=== PATIENT | female | born 1960 | race Hispanic/Latino ===

== ENCOUNTER 2017-06-04 17:42 | Emergency (ER) | payer OTHER ==
[~2017-06-04] VITALS: Ht 142.2 cm; Wt 58.1 kg
[2017-06-04] MEDS ORDERED: HYDROCODONE/APAP 10MG-325MG TAB PO ONE (19:00)
[2017-06-04 20:00] LABS: BASOPHILS % 0.6 % (0.0-1.0); EOSINOPHILS # (AUTO) 0.3 (0.0-0.4); EOSINOPHILS % 4.9 % (0.0-6.0); HEMATOCRIT 38.8 % (34.2-44.1); HEMOGLOBIN 13.7 g/dL (12.0-16.0); LYMPHOCYTES # (AUTO) 2.3 (1.0-3.2); LYMPHOCYTES % 36.5 % (18.0-39.1); MEAN CORPUSCULAR HEMOGLOBIN 31.3 pg (28-32); MEAN CORPUSCULAR HGB CONC 35.3 g/dL (31-35); MEAN CORPUSCULAR VOLUME 88.6 fL (81-99); MONOCYTES # (AUTO) 0.5 (0.2-0.8); MONOCYTES % 7.6 % (4.4-11.3); NEUTROPHILS # (AUTO) 3.1 (2.1-6.9); NEUTROPHILS % 50.1 % (38.7-80.0); PLATELET COUNT 216 x10e3/uL (140-360); RED BLOOD COUNT 4.38 x10e6/uL (3.6-5.1); RED CELL DISTRIBUTION WIDTH 12.5 % (11.7-14.4)
[2017-06-04 20:18] LABS: ALANINE AMINOTRANSFERASE 24 IU/L (0-55); ALBUMIN 4.3 g/dL (3.5-5.0); ALBUMIN/GLOBULIN RATIO 1.2 (0.8-2.0); ALKALINE PHOSPHATASE 84 IU/L (40-150); ANION GAP 13.6 mmol/L (8-16); BLOOD UREA NITROGEN 21 mg/dL (7-26); BUN/CREATININE RATIO 26 (6-25); CALCIUM 9.4 mg/dL (8.4-10.2); CARBON DIOXIDE 29 mmol/L (22-29); CHLORIDE 103 mmol/L (98-107); CREATININE, SERUM 0.82 mg/dL (0.57-1.11); EST GLOMERULAR FILTRATION RATE > 60 ML/MIN (60-); GLUCOSE 128 mg/dL (74-118); POTASSIUM 3.6 mmol/L (3.5-5.1); SODIUM 142 mmol/L (136-145)
--- NOTE | 2017-06-04 21:34 | Diagnostic Imaging Report ---
History: Back pain and saddle paresthesia for one month. Comparison studies: None Technique: Sagittal , coronal and axial T2 , sagittal T1 and IR, axial PD.. Intravenous contrast: None Findings: Number of lumbar vertebral bodies: 5. Alignment: Normal lordosis. No scoliosis. Soft tissues: No T2 hyperintense inflammatory changes. Paraspinal muscles: No signal abnormalities. Well-preserved. No atrophic changes Lower thoracic cord: Normal in signal and morphology. The tip of the conus is at L1 . Cauda equina: No masses. No arachnoiditis. Vertebrae: No compression fractures, infection or neoplasm. Superior and inferior endplate Schmorl's node at L2. Degenerative changes: L1-L2: Mild degenerative disc disease with decreased intervertebral disc space and decreased T2 signal. Disc bulge without canal stenosis. No foraminal stenosis. L2-L3: Mild degenerative disc disease with decreased T2 signal. Disc bulge in combination with epidural lipomatosis results in mild canal stenosis. No foraminal stenosis. L3-L4: Mild degenerative disc disease with decreased T2 signal. Disc bulge in combination with thickened ligamentum flavum, bilateral facet arthrosis and mild epidural lipomatosis results in mild canal stenosis. Mild bilateral foraminal stenosis. L4-L5: Mild degenerative disc disease with decreased T2 signal. Disc bulge in combination with thickened ligamentum flavum and bilateral severe facet arthrosis results in severe canal stenosis with crowding of cauda equina nerve roots. Bilateral severe facet arthrosis with moderate amount of fluid in the facet joints. Bilateral mild foraminal stenosis. L5-S1: Moderate degenerative disc disease with decreased intervertebral disc space and decreased T2 signal. 3 mm grade 1 anterolisthesis. Disc bulge with superimposed 3 mm central disc protrusion in combination with thickened ligamentum flavum and facet arthrosis results in moderate canal stenosis. Severe right and mild left foraminal stenosis. Possible impingement of right L5 nerve root by disc material. Bilateral severe facet arthrosis with trace amount of fluid in the facet joints. Visualized portion of bilateral sacroiliac joints: No significant abnormality. IMPRESSION: 1. Multilevel lumbar spondylosis with predominant findings at level L4-L5. 2. Multilevel canal stenosis, particularly severe canal stenosis at L4-L5, moderate canal stenosis at L5-S1 and mild canal stenosis at L2-L3 and L3-L4. 3. Multilevel foraminal stenosis, particularly bilateral mild at L3-L4, L4-L5, severe right and mild left at L5-S1. Possible impingement of right L5 nerve root by disc material at L5-S1. 4. Grade 1 anterolisthesis at L5-S1. 5. Multilevel degenerative disc disease and facet arthrosis, with severe bilateral facet arthrosis at level L4-L5 and L5-S1. Signed by: Dr. Edda Mendoza M.D. on 06/04/2017 9:31 PM
[2017-06-04 21:40] LABS: BILIRUBIN,URINE NEGATIVE (NEGATIVE); COLOR,URINE YELLOW (YELLOW); KETONES,URINE NEGATIVE (NEGATIVE); LEUKOCYTE ESTERASE ,URINE TRACE (NEGATIVE); NITRITE,URINE NEGATIVE (NEGATIVE); PROTEIN,URINE DIPSTICK NEGATIVE (NEGATIVE); URINE UROBILINOGEN 0.2 mg/dL (0.2 - 1)
--- NOTE | 2017-06-04 21:40 | Diagnostic Imaging Report ---
EXAM: CERVICAL 3 VIEWS, AP, lateral and open mouth odontoid view DATE: 06/04/2017 6:55 PM Time stamp on exam: [id number] INDICATION: Neck pain COMPARISON: None FINDINGS: BONES: On the lateral view, the cervical spine is visualized from the skull base to C7. The alignment is within normal limits. No displaced fractures. No lytic or blastic lesions. DISCS: The disc-spaces are well-maintained. JOINTS: The facet joints are unremarkable. SOFT TISSUES: Unremarkable IMPRESSION: No acute cervical spine radiographic findings. Signed by: Dr. Ruchi Ritter M.D. on 06/04/2017 9:37 PM
[2017-06-04 21:42] LABS: CLARITY,URINE SL CLOUDY (CLEAR)
[2017-06-04 21:52] LABS: EPITHELIAL CELLS,URINE FEW /LPF; WBC,URINE (MAN) 0-5 /HPF (0-5)
[2017-06-04 21:53] LABS: HYALINE CASTS 0-1 (0-1)
[2017-06-04] MEDS ORDERED: METHYLPREDNISOLONE SOD SUCC 125 MG/2ML VIAL IV STA (22:03)
[2017-06-04 22:13] VITALS: BP 147/69
[2017-06-04] MEDS ORDERED: MEDROL DOSE PACK (22:25)
[2017-06-04] MEDS ORDERED: ULTRAM 50MG50 MG PO (22:25)
== END 2017-06-04 22:40 | disposition home or self-care (01) ==
LOC: ER 17:42
DX: M54.5 Low back pain (principal); M54.16 Radiculopathy, lumbar region; S39.012A Strain of muscle, fascia and tendon of lower back, initial encounter; M51.24 Other intervertebral disc displacement, thoracic region
CPT/HCPCS: 36415; 72040; 72148; 80053; 81001; 85025; 96374; 99284; J2930